=== PATIENT | female | born 1990 | race Caucasian/White ===

== ENCOUNTER 2019-02-01 10:25 | Outpatient (CLI) | payer BC ==
[~2019-02-01] VITALS: Ht 157.5 cm; Wt 65.4 kg
[2019-02-01 10:36] VITALS: Ht 157.5 cm; Wt 65.4 kg
[2019-02-01 10:38] VITALS: BP 111/64; PULSE 79; RESP 17
[2019-02-01] MEDS ORDERED: HYDROCODONE/APAP (10/325) TAB PO ONE (11:00)
--- NOTE | 2019-02-01 13:05 | TRIAGE ---
OB Triage Datetime Report Generated by CPN: 02/01/2019 13:05 Datetime: 02/01/2019 12:59 Pattern: Normal: <= 5 Contractions in 10 Minutes Resting Tone [place]: Relaxed Contraction Comments: no uc Heart Rate FHR Baseline Rate: 135 Monitor Mode: External US Variability: Moderate 6-25 bpm Accelerations: 15X15 Decelerations: None Category: Category I Datetime: 02/01/2019 12:25 Pattern: Normal: <= 5 Contractions in 10 Minutes Resting Tone [place]: Relaxed Contraction Comments: no uc Heart Rate FHR Baseline Rate: 135 Variability: Moderate 6-25 bpm Accelerations: 15X15 Decelerations: Variable Category: Category II Datetime: 02/01/2019 11:20 Labor Evaluation Frequency: irritability Duration (sec)2399: 20-30 Pattern: Normal: <= 5 Contractions in 10 Minutes Resting Tone [place]: Relaxed Heart Rate FHR Baseline Rate: 135 Monitor Mode: External US Variability: Moderate 6-25 bpm Accelerations: 15X15 Decelerations: None Category: Category I Datetime: 02/01/2019 10:41 Assessment Type: Triage Maternal Assessment Level of Consciousness: Fully Conscious DTR's/Clonus: DTRs 2+; No Clonus Headache: Frontal (Annotations: pain level 7/10) Blurred Vision: No Respiratory Effort: Unlabored; Regular Rhythm; Equal Expansion Breath Sounds, Left: Clear and Equal Breath Sounds, Right: Clear and Equal Nausea/Vomiting: Denies RUQ Epigastric Pain: Denies Lower Extremities Edema: None Degree: None Upper Extremities Edema: None Facial Edema: None Fall Risk Assessment History of Falling: (0) No Secondary Diagnosis: (0) No Ambulatory Aid: (0) Bedrest/Nurse Assist IV Therapy: (0) No Gait: (0) Normal/Bedrest/Immobile Mental Status: (0) Oriented to Own Ability Fall Score: 0 Fall Risk Score Definition: No Risk: No action required Datetime: 02/01/2019 10:40 Time of Arrival: 02/01/2019 10:21 EGA: 37.2 Arrived By: Ambulatory Arrived From: Home Chief Complaint: c/o headache, vag. discharge, and lower abdominal cramping for 2 weeks, also c/o d ecreased fm for 2 days Movement: Decreased Contractions: Denies/Absent Rupture of Membranes: Denies Vaginal Bleeding: None Vaginal Discharge: Denies Recent Sexual Intercouse: Denies Abdominal Trauma: Not Applicable Patient Complaints: Other Time Provider Notified: 02/01/2019 10:47 Provider Notified: Initial Plan: bpp, pih labs
--- NOTE | 2019-02-01 13:57 | PN ---
Triage Information Date/Time Reason for visit: DFM Weeks of Gestation 37 weeks and 2 days /Para -0-0-1 Diabetes: none Hypertention: none Objective Vital Signs Date Temp Pulse Resp B/P (MAP) Pulse Ox O2 O2 Flow FiO2 Time Delivery Rate 02/01/19 98.2 79 17 111/64 10:38 (80) Heart Rate: 130's Contractions: None Results/Medications Result Diagram: 02/01/19 1116 02/01/19 1116 Results 24 hrs Laboratory Tests Test 02/01/19 10:50 02/01/19 11:16 Urine Color YELLOW Urine Clarity SLIGHTLY CLOUDY A Urine pH 7.0 Urine Specific [place] 1.018 Urine Ketones NEGATIVE Urine Nitrite NEGATIVE Urine Bilirubin NEGATIVE Urine Urobilinogen NEGATIVE Urine Leukocyte Esterase NEGATIVE Urine Microscopic RBC 0 Urine Microscopic WBC 2 Urine Squamous Epithelial Cells FEW Urine Hemoglobin NEGATIVE Urine Glucose NEGATIVE Urine Total Protein NEGATIVE White Blood Count 6.7 Red Blood Count 3.89 L Hemoglobin 11.2 L Hematocrit 34.1 L Mean Corpuscular Volume 87.7 Mean Corpuscular Hemoglobin 28.8 L Mean Corpuscular Hemoglobin Concent 32.8 Red Cell Distribution Width 13.6 Platelet Count 236 Mean Platelet Volume 10.3 Immature Granulocytes % 1.500 H Neutrophils % 70.1 Lymphocytes % 18.2 Monocytes % 7.9 Eosinophils % 1.9 Basophils % 0.4 Nucleated Red Blood Cells % 0.0 Immature Granulocytes # 0.100 H Neutrophils # 4.7 Lymphocytes # 1.2 Monocytes # 0.5 Eosinophils # 0.1 Basophils # 0.0 Nucleated Red Blood Cells # 0.0 Prothrombin Time 13.6 Prothrombin Time Ratio 1.1 INR International Normalized Ratio 1.03 Activated Partial Thromboplast Time 31.4 Fibrinogen 361.0 Sodium Level 139 Potassium Level 4.0 Chloride Level 111 H Carbon Dioxide Level 19 L Anion Gap 9 Blood Urea Nitrogen 8 Creatinine 0.51 Est Glomerular Filtrat Rate mL/min > 60 Glucose Level 85 Uric Acid 3.7 Calcium Level 9.1 Total Bilirubin 0.3 Direct Bilirubin 0.00 Indirect Bilirubin 0.3 Aspartate Amino Transf (AST/SGOT) 20 Alanine Aminotransferase (ALT/SGPT) 18 Alkaline Phosphatase 110 Total Protein 6.6 Albumin 3.4 Globulin 3.20 Albumin/Globulin Ratio 1.06 Disposition: Discharge Assessment/Plan 28 years old -0-0-1 have a single intrauterine at 37 weeks and 2 days complaining of decreased movement and headache. She states good movement. She denies nausea, vomiting, shortness of breath, chest pain, headache, visual changes, vaginal bleeding or LOF. -FHR: No sign of metabolic acidosis- Category I -Contractions: None -All blood pressure during triage are within normal limits, no symptoms of preeclampsia with severe features except headache which resolved with [place] -Ultrasound performed, normal TEMO biophysical profile 8 out of 8 -Symptoms and sign of labor, preeclampsia, kick count discussed with frances ent, she voiced understanding. All of her questions answered. -Patient was discharged home in stable condition with the appropriate discharge instructions provided. I would like patient to have close follow-up with her primary physician or outpatient clinic in 1-2 days or return to triage for wors ening symptoms or any other urgent concerns. CRUZ RODRIGUEZ Feb 01, 2019 13:57
== END 2019-02-01 13:00 | disposition home or self-care (01) ==
LOC: OBT 10:25 → L-D 10:25 → OBT 13:00
PROVIDERS: ATTEND Obstetrics & Gynecology
DX: O36.8130 Decreased fetal movements, third trimester, not applicable or unspecified (principal); Z3A.37 37 weeks gestation of pregnancy
CPT/HCPCS: 76818; 80053; 81001; 84560; 85025; 85384; 85610; 85730; Z7500; Z7610; 81003; G0463

== ENCOUNTER 2019-02-05 07:36 | Outpatient (CLI) | payer BC ==
[~2019-02-05] VITALS: Ht 157.5 cm; Wt 66.7 kg
[2019-02-05 07:57] VITALS: Ht 157.5 cm; Wt 66.7 kg
[2019-02-05 07:58] VITALS: BP 103/60; PULSE 73
[2019-02-05] MEDS ORDERED: PNV11TAB PO (08:03)
--- NOTE | 2019-02-05 10:11 | PN ---
Triage Information Date/Time Reason for visit: Uterine contractions Weeks of Gestation 37+ /Para 2/1 Diabetes: none Hypertention: none Objective Vital Signs Date Temp Pulse Resp B/P (MAP) Pulse Ox O2 O2 Flow FiO2 Time Delivery Rate 02/05/19 98.0 73 103/60 07:58 (74) Heart Rate: 140's Contractions: None Results/Medications Results 24 hrs Laboratory Tests Test 02/05/19 08:20 Urine Color YELLOW Urine Clarity CLOUDY A Urine pH 5.0 Urine Specific [place] 1.016 Urine Ketones NEGATIVE Urine Nitrite NEGATIVE Urine Bilirubin NEGATIVE Urine Urobilinogen NEGATIVE Urine Leukocyte Esterase TRACE A Urine Microscopic RBC 3 Urine Microscopic WBC 7 H Urine Squamous Epithelial Cells MODERATE Urine Bacteria FEW A Urine Hemoglobin NEGATIVE Urine Glucose NEGATIVE Urine Total Protein NEGATIVE Disposition: Discharge Assessment/Plan BPP 07/27 CX clsoed If ROM plus test is negative she can be discharged and needs to follow up in 2 days for NST BPP Precautions discussed Questions answered Follow up with provider COLIN DIAZ M.D. Feb 05, 2019 10:11
--- NOTE | 2019-02-05 11:10 | TRIAGE ---
OB Triage Datetime Report Generated by CPN: 02/05/2019 11:10 Datetime: 02/05/2019 10:52 Stage of : OB Triage Datetime: 02/05/2019 10:03 Stage of : OB Triage Datetime: 02/05/2019 10:00 Labor Evaluation Frequency: 8-10 Monitor Mode: External Duration (sec)2399: 30-50 Quality: Mild Pattern: Normal: <= 5 Contractions in 10 Minutes Resting Tone [place]: Relaxed Heart Rate FHR Baseline Rate: 125 Monitor Mode: External US Variability: Moderate 6-25 bpm Accelerations: 10X10 Decelerations: None Category: Category I Pain Assessment Pain Scale: 4 Pain Presence: Intermittent Pain Type: Cramping Pain Location: Perineum Pain Goal: 3 Pain Relief Measures: Comfort Measures Datetime: 02/05/2019 08:54 Labor Evaluation Frequency: 0 Monitor Mode: External Pattern: Normal: <= 5 Contractions in 10 Minutes Resting Tone [place]: Relaxed Heart Rate FHR Baseline Rate: 125 Monitor Mode: External US Variability: Moderate 6-25 bpm Accelerations: 15X15 Decelerations: None Category: Category I Pain Assessment Pain Scale: 6 Pain Presence: Intermittent Pain Type: Cramping Pain Location: Perineum Pain Goal: 3 Pain Relief Measures: Comfort Measures Datetime: 02/05/2019 08:41 Stage of : OB Triage Datetime: 02/05/2019 08:08 Stage of : OB Triage Datetime: 02/05/2019 07:52 Stage of : OB Triage Assessment Type: Triage Time of Arrival: 02/05/2019 07:30 EGA: 37.6 Arrived By: Ambulatory Arrived From: Home Chief Complaint: F/U DFM, DENIES BLEEDING, LEAKING OR UC'S Movement: Present Contractions: Denies/Absent Rupture of Membranes: Denies Vaginal Bleeding: None Vaginal Discharge: Denies Recent Sexual Intercouse: Denies Abdominal Trauma: Not Applicable Patient Complaints: None Time Provider Notified: 02/05/2019 08:08 Provider Notified: EMILY Initial Plan: MONITOR, BPP, U/A C_S Maternal Assessment Level of Consciousness: Fully Conscious DTR's/Clonus: DTRs 2+; No Clonus Headache: Denies Blurred Vision: No Respiratory Effort: Unlabored; Regular Rhythm; Equal Expansion Breath Sounds, Left: Clear and Equal Breath Sounds, Right: Clear and Equal Nausea/Vomiting: Denies RUQ Epigastric Pain: Denies Facial Edema: None Temperature Route: Axillary Fall Risk Assessment History of Falling: (0) No Secondary Diagnosis: (0) No Ambulatory Aid: (0) Bedrest/Nurse Assist IV Therapy: (0) No Gait: (0) Normal/Bedrest/Immobile Mental Status: (0) Oriented to Own Ability Fall Score: 0 Fall Risk Score Definition: No Risk: No action required Labor Evaluation Frequency: 0 Monitor Mode: External Pattern: Normal: <= 5 Contractions in 10 Minutes Resting Tone [place]: Relaxed Heart Rate FHR Baseline Rate: 135 Monitor Mode: External US Variability: Moderate 6-25 bpm Decelerations: None Category: Category I Pain Assessment Pain Scale: 7 Pain Presence: Intermittent Pain Type: Cramping Pain Location: Perineum Pain Goal: 3 Pain Relief Measures: Comfort Measures Datetime: 02/01/2019 13:03 Time of Arrival: 02/05/2019 07:30 EGA: 37.6 Arrived By: Ambulatory Arrived From: Home Datetime: 02/01/2019 10:41 Fall Score: 0 Fall Risk Score Definition: No Risk: No action required Datetime: 02/01/2019 10:40 EGA: 37.2
== END 2019-02-05 11:00 | disposition home or self-care (01) ==
LOC: OBT 07:36 → L-D 07:37 → OBT 11:00
PROVIDERS: ATTEND Obstetrics & Gynecology
DX: O62.9 Abnormality of forces of labor, unspecified (principal); Z3A.37 37 weeks gestation of pregnancy
CPT/HCPCS: 76818; 81001; 84112; 87086; Z7500; G0463

== ENCOUNTER 2019-02-07 09:44 | Outpatient (CLI) | payer BC ==
[~2019-02-07] VITALS: Ht 157.5 cm; Wt 66.2 kg
[~2019-02-07 09:44] MED LIST: PNV11TAB PO
[2019-02-07 10:09] VITALS: BP 106/67; PULSE 87; RESP 17; Ht 157.5 cm; Wt 66.2 kg
--- NOTE | 2019-02-07 11:24 | TRIAGE ---
OB Triage Datetime Report Generated by CPN: 02/07/2019 11:24 Datetime: 02/07/2019 11:02 Labor Evaluation Frequency: occ Monitor Mode: External Duration (sec)2399: 50-60 Quality: Mild Pattern: Normal: <= 5 Contractions in 10 Minutes Resting Tone [place] [employer]: Relaxed Heart Rate FHR Baseline Rate: 125 Monitor Mode: External US Variability: Moderate 6-25 bpm Accelerations: 15X15 Decelerations: None Category: Category I Comments: reactive nst Datetime: 02/07/2019 09:50 Assessment Type: Triage Maternal Assessment Level of Consciousness: Fully Conscious DTR's/Clonus: DTRs 2+; No Clonus Headache: Denies Blurred Vision: No Respiratory Effort: Unlabored; Regular Rhythm; Equal Expansion Breath Sounds, Left: Clear and Equal Breath Sounds, Right: Clear and Equal Nausea/Vomiting: Denies RUQ Epigastric Pain: Denies Lower Extremities Edema: None Degree: None Upper Extremities Edema: None Facial Edema: None Fall Risk Assessment History of Falling: (0) No Secondary Diagnosis: (0) No Ambulatory Aid: (0) Bedrest/Nurse Assist IV Therapy: (0) No Gait: (0) Normal/Bedrest/Immobile Mental Status: (0) Oriented to Own Ability Fall Score: 0 Fall Risk Score Definition: No Risk: No action required Datetime: 02/05/2019 11:08 Time of Arrival: 02/07/2019 09:27 EGA: 38.1 Chief Complaint: follow up nst, bpp due to hx of decreased fm, karan 7.2, also c/o discharge Rupture of Membranes: Unsure Time Provider Notified: 02/07/2019 10:05 Provider Notified: Initial Plan: nst, bpp, rom plus Datetime: 02/05/2019 07:52 EGA: 37.6 Fall Score: 0 Fall Risk Score Definition: No Risk: No action required Datetime: 02/01/2019 13:03 EGA: 37.6 Datetime: 02/01/2019 10:41 Fall Score: 0 Fall Risk Score Definition: No Risk: No action required Datetime: 02/01/2019 10:40 EGA: 37.2
--- NOTE | 2019-02-07 11:35 | PN ---
Triage Information Date/Time Reason for visit: F/u on Low TEMO and Decresed movements Weeks of Gestation 38+ /Para n/a Diabetes: none Hypertention: none Objective Vital Signs Date Temp Pulse Resp B/P (MAP) Pulse Ox O2 O2 Flow FiO2 Time Delivery Rate 02/07/19 98.1 87 17 106/67 10:09 (80) Heart Rate: 140's Contractions: None Results/Medications Results 24 hrs Laboratory Tests Test 02/07/19 10:25 Membranes Rupture NEGATIVE Disposition: Discharge Assessment/Plan Precautions discussed Questions answered Follow up with provider COLIN DIAZ M.D. Feb 07, 2019 11:26
== END 2019-02-07 11:16 | disposition home or self-care (01) ==
LOC: OBT 09:44 → L-D 09:45 → OBT 11:16
PROVIDERS: ATTEND Obstetrics & Gynecology
DX: O36.8130 Decreased fetal movements, third trimester, not applicable or unspecified (principal); O41.93X0 Disorder of amniotic fluid and membranes, unspecified, third trimester, not applicable or unspecified; Z3A.38 38 weeks gestation of pregnancy
CPT/HCPCS: 76818; 84112; Z7500; G0463

== ENCOUNTER 2019-02-14 05:36 | Inpatient (IN) | payer BC ==
[2019-02-14] VITALS (9 sets, daily range): BP systolic 93–112; BP diastolic 55–70; PULSE 53–99; RESP 16–18; Ht 168.9 cm; Wt 66.8 kg
[~2019-02-14] VITALS: Ht 168.9 cm; Wt 66.8 kg
[2019-02-14] MEDS ORDERED: LACTATED RINGER'S 1,000 ML IV SCH (05:42)
[2019-02-14] MEDS ORDERED: CARBOPROST 250 MCG INJ IM PRN ×2 (06:00→14:30)
[2019-02-14] MEDS ORDERED: OXYTOCIN 30 UNITS/LR 500 ML IV PRN ×2 (06:00→14:30)
[2019-02-14] MEDS ORDERED: OXYTOCIN 30 UNITS/LR 500 ML IV SCH ×2 (06:00→14:05)
[2019-02-14] MEDS ORDERED: MISOPROSTOL 200 MCG TAB PR PRN ×2 (06:00→14:30)
[2019-02-14] MEDS ORDERED: CEFAZOLIN 2 GM/50 ML (PMX) 50 ML IVPB SCH (06:00)
[2019-02-14] MEDS ORDERED: METHYLERGONOVINE 0.2 MG INJ IM PRN ×2 (06:00→14:30)
--- NOTE | 2019-02-14 07:20 | PREAC ---
Date/Time of Note Date/Time of Note DATE: 02/14/19 TIME: : Anesthesia Eval and Record Evaluation Time Pre-Procedure Interview DATE: 02/14/19 TIME: 07:19 Age 28 Sex female NPO: 8 hrs Preoperative diagnosis repeat c section Planned procedure c section Past Medical History Past Medical History: None Surgery & Anesthesia Issues No known issue Meds Anticoagulation: No Beta Abilio within 24 hr: No Reason Beta Abilio not given: Pt. not on B-Abilio Reported Medications [id number] ( 19) 1 Each Tablet, 1 TAB PO DAILY, TAB 02/05/19 Current Medications Lactated Ringer's 1,000 ml @ 125 mls/hr Q8H IV Last administered on 02/14/19at 06:26; Admin Dose 125 MLS/HR; Start 02/14/19 at 05:42 Cefazolin Sodium/ Dextrose 50 ml @ 100 mls/hr ONCE IVPB ; Start 02/14/19 at 06:00 Oxytocin/Lactated Ringer's 500 ml @ 125 mls/hr POST IV ; Start 02/14/19 at 06:00 Oxytocin/Lactated Ringer's 500 ml @ 0 mls/hr ONCE PRN IV .VAGINAL BLEEDING; Start 02/14/19 at 06:00 Methylergonovine Maleate (Methergine) 0.2 mg ONCE PRN IM .VAGINAL BLEEDING; Start 02/14/19 at 06:00 Carboprost Tromethamine (Hemabate) 250 mcg ONCE PRN IM .VAGINAL BLEEDING; Start 02/14/19 at 06:00 Misoprostol (Cytotec) 1,000 mcg ONCE PRN CO .VAGINAL BLEEDING; Start 02/14/19 at 06:00 Meds reviewed: Yes Allergies Coded Allergies: No Known Allergy (Unverified , 02/01/19) Allergies Reviewed: Yes Labs/Studies Labs Reviewed: Reviewed by anesthesiologist Result Diagram: 02/14/19 0610 Laboratory Tests 02/14/19 06:10 test: Positive Studies: ECG (n/a), CXR (n/a) Pre-procedure Exam Last vitals Vital Signs Date Temp Pulse Resp B/P (MAP) Pulse Ox O2 O2 Flow FiO2 Time Delivery Rate 02/14/19 98.0 79 18 112/58 Room Air 05:58 (76) Airway: Adequate mouth opening Mallampati: Mallampati I Teeth: Normal Lung: Normal Heart: Normal ASA Physical Status ASA physical status: 2 Emergency: None Planned Anesthetic Neuraxial: Spinal Planned Pain Management Sub-arachniod narcotics Pre-operative Attestations Prior to commencing anesthesia and surgery, the patient was re-evaluated, there was verification of: *The patient's identity *The results of appropriate recent lab work and preoperative vital signs *The above evaluation not changing prior to induction *Anesthetic plan, risk benefits, alternative and complications discussed with patient/family; questions answered; patient/family understands, accepts and wishes to proceed. CINDY FREEMAN MD Feb 14, 2019 07:20
[2019-02-14] MEDS ORDERED: CITRIC ACID/NA CITRATE 30 ML CUP ONE (07:27)
[2019-02-14] MEDS ORDERED: CITRIC ACID/NA CITRATE 30 ML CUP PO ONE (07:30)
[2019-02-14] MEDS ORDERED: METOCLOPRAMIDE 10 MG INJ ONE (08:26)
[2019-02-14] MEDS ORDERED: morphine SULFATE/PF (10 MG/10 ML) INJ ONE (08:26)
[2019-02-14] MEDS ORDERED: ONDANSETRON 4 MG INJ ONE (08:26)
[2019-02-14] MEDS ORDERED: KETOROLAC 30 MG INJ ONE (08:27)
--- NOTE | 2019-02-14 08:36 | HP ---
Date/Time of Note Date/Time of Note DATE: 02/14/19 TIME: 08:34 OB - History Hx of Present Free Text/Dictation 28 years old 2 para 1-0-0-1 with single intrauterine at 39 weeks and 1 day with previous delivery desires repeat delivery. She declined ToLAC. She states good movement. She denies nausea, vomiting, shortness of breath, chest pain, headache, visual changes, vaginal bleeding or LOF. Chief Complaint: Scheduled for repeat delivery Estimated Due Date: February 20, 2019 : 2 Para: 1 Spontaneous : 0 Therapeutic : 0 Care: Limited Care Ultrasounds: Normal mid trimester US Obstetrical Complications: None Medical Complications: None Past Family/Social History * Past Medical, Surgical, Family and Obstetric Histories reviewed from chart. Blood Type: O+ Rubella: immune RPR/VDRL: Negative GBS Status: Negative HBsAG: Negative OB Admission Exam Vital Signs Vital Signs Vital Signs Date Temp Pulse Resp B/P (MAP) Pulse Ox O2 O2 Flow FiO2 Time Delivery Rate 02/14/19 98.0 79 18 112/58 Room Air 05:58 (76) Physical Exam HEENT: WNL Heart: Rhythm Normal Abdomen: WNL Extremities: Normal Membranes: Intact Heart Rate: 140's Accelerations: Accelerations Present Decelerations: No Decelerations Varibility: Moderate Contractions on Admission: None Last 72 hours Lab Results CBC & BMP 02/14/19 06:10 OB Assessment/Plan Other plan: 28 years old 2 para 0-1-0-0 1 with previous delivery at 39 weeks and 1 day desires repeat delivery - FHR: No sign of metabolic acidosis- Category I - Continuous EFM, toco - CBC, blood type and screen - Please see the orders - O+/Rubella: Immune - GBS: Negative The risk of delivery including but not limited to bleeding, infection, injury to other organs (bowel, bladder, ureter, vessels, nerves), injury to fetus, blood transfusion, blood transfusion related infection, risk of anesthesia, adhesion, needs for future , removal of uterus or any other indicated surgery was discussed with the patient and her family. She expressed understanding. All of her questions were answered. She signed the informed consent. PHYSICIAN'S VERIFICATION OF INFORMED CONSENT The patient was counseled regarding the procedure, its indications, risks, potential complications and alternatives and any questions were answered. Consent was obtained. PLANNED PROCEDURE/TREATMENT: delivery with possible using vac uum/forceps and any other indicated surgery PHYSICIAN'S VERIFICATION OF INFORMED CONSENT FOR BLOOD TRANSFUSION: There is a reasonable possibility that blood transfusion will be necessary as a result of the patient's procedure. I have discussed the following with the patient/patient's legal direct customer service representative: An explanation of the benefits and risks of the transfusion of blood or blood products and the possible alternatives. All questions have been answered to the patient's satisfaction. INFORMED CONSENT:The patient has been informed of: The nature of the proposed care, treatment, services, medications, interventions or procedures. Potential benefits, risks or side effects, including potential problems related to recuperation. The likelihood of achieving care treatment and service goals. Reasonable alternatives to the proposed care, treatment and service. The relevant risks, benefits and side effects related to alternatives, including the possible results of not receiving care, treatment and services. When indicated, any limitations on the confidentiality of information learned from or about the patient. If appropriate, the risks, benefits and alternatives of the drugs to be used for sedation/analgesia including moderate sedation. If appropriate, patient has been provided information on the risks, benefits and alternatives to the transfusion of blood and/or blood products. If appropriate, patient has been provided information regarding the Danilo Karolyn Blood Act. CRUZ RODRIGUEZ Feb 14, 2019 08:36
[2019-02-14] MEDS ORDERED: PHENYLephrine (100 MCG/ML) 10ML SYG ONE (08:39)
[2019-02-14] MEDS ORDERED: OXYTOCIN 30 UNITS/LR 500 ML IV ONE (09:15)
--- NOTE | 2019-02-14 10:08 | OPR ---
Operative Report Planned Procedure Procedure date Feb 14, 2019 Procedure(s) Repeat low transverse delivery Performed by see signature line Funeral Director/Embalmer: COLIN DIAZ M.D. Anesthesiologist: CINDY FREEMAN MD Pre-procedure diagnosis 28 years old 2 para 1-0-0-1 with single intrauterine at 39 weeks and 1 day with previous delivery desires a repeat delivery. She declined TOLAC [id number] Anesthesia Type: [id number] spinal Post-Procedure Post-procedure diagnosis 28 years old 2 para 1-0-0-1 with single intrauterine at 39 weeks and 1 day with previous delivery desires a repeat delivery Findings 1. Normal uterus, fallopian tubes and ovaries 2. Viable female in cephalic presentation. 9 at one minute and 9 in 5 minutes. Weight: 6 pound 9 ounces. Time of delivery: 09:00 3. Placenta with three vessel cord 4. Amniotic fluid - Clear Estimated Blood Loss: 600 - 700 mls Specimen(s) none Grafts/Implant(s) none Complication(s) none Pt Condition post procedure: stable Disposition: PACU Procedure Description INDICATION AND HISTORY: A 28 years old 2 para 1-0-0-1 with single intrauterine at 39 weeks and 1 day with previous delivery desires a repeat delivery. The risk of delivery including but not limited to bleeding, infection, injury to other organs (bowel, bladder, ureter, vessels, nerves), injury to fetus, blood transfusion, blood transfusion related infection, risk of anesthesia, adhesion, needs for future , removal of uterus or any other indicated surgery was discussed with the patient and her family. She expressed understanding. All of her questions were answered. She signed the informed consent. DESCRIPTION OF OPERATION: The patient was taken to the operating room, where she was identified and the procedure was verified. The patient received two gram of Ancef 30 minutes prior to surgery. Spinal anesthesia was placed. The patient placed in the dorsal supine position with a left tilt. The heart rate was 130 bpm. The patient was then prepped and draped in the normal sterile fashion. A Pfannenstiel skin incision was made and carried down to the fascia with knife. The fascia was incised in the midline and the fascial incision was carried laterally with Winchester scissors. The superior portion of the fascial incision was then grasped with Yajaira clamps and tented up and dissected off the underlying rectus muscle with sharp dissection. The lower portion of the fascial incision was then made in a similar fashion. The rectus muscle was and the peritoneum was entered. The peritoneal incision was then stretched and a bladder blade was inserted. Then, an incision was made in the lower uterine segment in a transverse fashion with a knife and extended bluntly. The was delivered atraumatically in cephalic presentation with the above findings. The umbilical cord was clamped and cut. The neonatology resuscitation team was present and the baby was handed to them. A cord blood sample was obtained for further evaluation. The placenta and membrane, which appeared normal were Removed. The uterus was exteriorized and cleared of all clot and debris. The uterus was then closed in a two layer fashion with 0-Monocryl. At the time of closure, hemostasis was noted. The gutters were irrigated. The peritoneum was reapproximated with 3-0 *Vicryl. The muscle was reapproximated with 3-0 Vicryl. The fascia was approximated with 0-Vicryl in a running fashion. The subcutaneous tissue was re approximated with 3-0 vicryl. The skin was closed with 4-0 Monocryl. All instruments, sponges and needle counts were correct x3. The patient tolerated the procedure well. She transferred to the recovery room in stable condition. CRUZ RODRIGUEZ Feb 14, 2019 10:08
[2019-02-14] MEDS ORDERED: morphine (1 MG/ML) 10ML SYRINGE IV PRN ×3 (11:00)
[2019-02-14] MEDS ORDERED: MEPERIDINE 25 MG INJ IV PRN (11:00)
[2019-02-14] MEDS ORDERED: ONDANSETRON 4 MG INJ IV PRN (11:00)
[2019-02-14] MEDS ORDERED: DIPHENHYDRAMINE 50 MG INJ IV PRN ×2 (11:00)
[2019-02-14] MEDS ORDERED: KETOROLAC 30 MG INJ IV PRN (11:00)
[2019-02-14] MEDS ORDERED: NALOXONE (0.4 MG/ML) INJ IV PRN (11:00)
[2019-02-14] MEDS ORDERED: morphine 2 MG INJ IV PRN ×3 (11:00)
[2019-02-14] MEDS: DEXTROSE 5%-LR 1,000 ML IV SCH ×2 (14:05→22:05)
[2019-02-14] MEDS ORDERED: MAGNESIUM HYDROXIDE 30ML CUP PO PRN (14:30)
[2019-02-14] MEDS ORDERED: METHYLERGONOVINE 0.2 MG TAB PO PRN (14:30)
[2019-02-14] MEDS: KETOROLAC 30 MG INJ IV PRN (18:40)
[2019-02-14] MEDS: SENNA/DOCUSATE NA (8.6MG/50MG) TAB PO SCH (21:42)
[2019-02-15 00:30] VITALS: BP 102/58; PULSE 60; RESP 18
[2019-02-15] MEDS: DEXTROSE 5%-LR 1,000 ML IV SCH (03:21)
[2019-02-15 03:34] VITALS: BP_SYST 90; BP_SYST 99; BP_DIAS 55; PULSE 68; RESP 18
[2019-02-15 07:45] VITALS: BP 97/69; PULSE 73; RESP 16
[2019-02-15] MEDS: LANOLIN HPA 1 PKT TOP PRN ×2 (08:08→20:41)
[2019-02-15] MEDS: SENNA/DOCUSATE NA (8.6MG/50MG) TAB PO SCH ×2 (08:08→20:41)
[2019-02-15] MEDS: KETOROLAC 30 MG INJ IV PRN (08:09)
--- NOTE | 2019-02-15 08:16 | PAC ---
Date/Time of Note Date/Time of Note DATE: 02/15/19 TIME: 08:16 Post-Anesthesia Notes Post-Anesthesia Note Last documented vital signs Vital Signs Date Temp Pulse Resp B/P (MAP) Pulse Ox O2 O2 Flow FiO2 Time Delivery Rate 02/15/19 98.4 68 18 99/55 (70) 97 Room Air 03:34 02/15/19 96 00:30 Activity: WNL Respiratory function: WNL Cardiovascular function: WNL Mental status: Baseline Pain reasonably controlled: Yes Hydration appropriate: Yes Nausea/Vomiting absent: No CINDY FREEMAN MD February 15, 2019 08:16
--- NOTE | 2019-02-15 08:18 | OPPN ---
Date/Time of Note Date/Time of Note DATE: 02/15/19 TIME: 08:16 Anesthesia Follow up Anesthesia Follow up Last documented vital signs Vital Signs Date Temp Pulse Resp B/P (MAP) Pulse Ox O2 O2 Flow FiO2 Time Delivery Rate 02/15/19 98.4 68 18 99/55 (70) Room Air 03:34 02/15/19 96 00:30 Respiratory function: WNL Cardiovascular function: WNL Comments A 28 year female POD#1 under spinal and duramorph foe post op pain. No pain, itching, N/V, headache, neural deficit. CINDY FREEMAN MD February 15, 2019 08:18
[2019-02-15] MEDS ORDERED: HYDROCODONE/APAP (5/325) TAB NGT PRN (11:00)
[2019-02-15] MEDS ORDERED: DIPHTH/TET/ACEL PERTUSS (ADULT) 0.5 ML VIAL IM* ONE (11:00)
[2019-02-15] MEDS: HYDROCODONE/APAP (5/325) TAB GTB SCH ×2 (14:08→21:48)
[2019-02-15] MEDS: IBUPROFEN 800 MG TAB PO SCH ×2 (14:09→21:48)
--- NOTE | 2019-02-15 15:18 | PN ---
Date/Time of Note Date/Time of Note DATE: 02/15/19 TIME: 15:16 OB Subjective Subjective Subjective POD#1 Patient is doing well. She denies nausea, vomiting, shortness of breath, chest pain, headache. She has been ambulating without difficulty, tolerating regular diet. Pain is well controlled on current medications OB Objective Objective Objective VS - Last 72 Hours, by Label Date Temp Pulse Resp B/P (MAP) Pulse Ox O2 O2 Flow FiO2 Time Delivery Rate 02/15/19 98.1 73 16 97/69 (78) Room Air 07:45 02/15/19 98.4 68 18 99/55 (70) Room Air 03:34 02/15/19 98.2 60 18 102/58 96 Room Air 00:30 (73) 02/14/19 98.4 66 18 110/70 98 Room Air 20:00 (83) 02/14/19 97.7 60 16 97/58 (71) 100 Room Air 16:30 02/14/19 97.7 56 16 103/60 100 Room Air 13:45 (74) 02/14/19 97.7 54 16 98/63 (75) 100 Room Air 12:35 02/14/19 53 18 94/59 (71) 100 Room Air 12:05 02/14/19 56 18 94/56 (69) Room Air 11:50 02/14/19 56 18 94/56 (69) 100 Room Air 11:35 02/14/19 97.6 59 18 93/55 (68) 100 Room Air 11:20 02/14/19 98.0 79 18 112/58 Room Air 05:58 (76) General: AAO X 3, comfortable, NAD, appropriate mood and affect. ABD: +BS. Soft, non-tender. Uterus 2 cm below umbilicus Incision: Dry dressing Flank: No CVA tenderness (B/L) LE: Mild edema. No clubbing, cyanosis, thigh or calf tenderness (B/L). Homans 'sign is negative OB Assessment/Plan Other plan: 28 years old 2 para 2-0-0-2 s/p repeat delivery POD#1 - AF, VSS - Baby is doing well, at bed side. She is bonding well - Contraception methods with R/B/A/FR discussed - Continue care - Discharge home on 02/17/2019 - Rx and instruction given - Follow up in one and 6 weeks CRUZ RODRIGUEZ February 15, 2019 15:18
[2019-02-15 16:05] VITALS: BP 97/62; PULSE 79; RESP 16
[2019-02-15 20:00] VITALS: BP 101/62; PULSE 89; RESP 17
[2019-02-16 03:44] VITALS: BP 100/55; PULSE 75; RESP 18
[2019-02-16] MEDS: IBUPROFEN 800 MG TAB PO SCH ×3 (05:33→21:52)
[2019-02-16] MEDS: HYDROCODONE/APAP (5/325) TAB GTB SCH ×3 (05:33→21:51)
[2019-02-16 08:00] VITALS: BP 104/56; PULSE 78; RESP 18
[2019-02-16] MEDS: SENNA/DOCUSATE NA (8.6MG/50MG) TAB PO SCH ×2 (09:42→21:51)
--- NOTE | 2019-02-16 12:27 | PN ---
Date/Time of Note Date/Time of Note DATE: 02/16/19 TIME: 12:26 OB Subjective Subjective Subjective POD#1 Patient is doing well. She denies nausea, vomiting, shortness of breath, chest pain, headache. She has been ambulating without difficulty, tolerating regular diet. Pain is well controlled on current medications Denies any depressive symptoms. Reports decreased vaginal bleeding. Denies any nausea vomiting or fever chills. Passed flatus. OB Objective OB Objective Objective Objective VS - Last 72 Hours, by Label Date Temp Pulse Resp B/P (MAP) Pulse Ox O2 O2 Flow FiO2 Time Delivery Rate 02/15/19 98.1 73 16 97/69 (78) Room Air 07:45 02/15/19 98.4 68 18 99/55 (70) Room Air 03:34 02/15/19 98.2 60 18 102/58 96 Room Air 00:30 (73) 02/14/19 98.4 66 18 110/70 98 Room Air 20:00 (83) 02/14/19 97.7 60 16 97/58 (71) 100 Room Air 16:30 02/14/19 97.7 56 16 103/60 100 Room Air 13:45 (74) 02/14/19 97.7 54 16 98/63 (75) 100 Room Air 12:35 02/14/19 53 18 94/59 (71) 100 Room Air 12:05 02/14/19 56 18 94/56 (69) Room Air 11:50 02/14/19 56 18 94/56 (69) 100 Room Air 11:35 02/14/19 97.6 59 18 93/55 (68) 100 Room Air 11:20 02/14/19 98.0 79 18 112/58 Room Air 05:58 (76) General: AAO X 3, comfortable, NAD, appropriate mood and affect. ABD: +BS. Soft, non-tender. Uterus 2 cm below umbilicus Incision: Dry dressing , appropriate tenderness in the incision Flank: No CVA tenderness (B/L) LE: Mild edema. No clubbing, cyanosis, thigh or calf tenderness (B/L). Homans 'sign is negative OB Assessment/Plan OB Assessment/Plan Other plan: 28 years old 2 para 2-0-0-2 s/p repeat delivery POD#2 - AF, VSS - Mild anemia, postop, asymptomatic Doing well Continue routine postop care May discharge home tomorrow CHERRI SANTAMARIA MD February 16, 2019 12:27
[2019-02-16 15:50] VITALS: BP 107/62; PULSE 72; RESP 18
[2019-02-16 21:00] VITALS: BP 112/77; PULSE 80; RESP 17
[2019-02-17 04:00] VITALS: BP 99/59; PULSE 75; RESP 18
[2019-02-17] MEDS: IBUPROFEN 800 MG TAB PO SCH ×2 (05:51→15:01)
[2019-02-17] MEDS: HYDROCODONE/APAP (5/325) TAB GTB SCH ×2 (05:51→15:01)
[2019-02-17 08:00] VITALS: BP 92/55; PULSE 77; RESP 18
[2019-02-17] MEDS ORDERED: DIPHTH/TET/ACEL PERTUSS (ADULT) 0.5 ML VIAL IM* ONE (09:00)
[2019-02-17] MEDS ORDERED: MEASLES,MUMPS,RUBELLA VACCINE INJ SC* ONE (09:00)
[2019-02-17] MEDS: SENNA/DOCUSATE NA (8.6MG/50MG) TAB PO SCH (09:36)
[2019-02-17 15:30] VITALS: BP 120/78; PULSE 91; RESP 18
--- NOTE | 2019-02-17 18:47 | DS ---
Date/Time of Note Date/Time of Note DATE: 02/17/19 TIME: 18:46 Obstetrical Discharge Record Final Diagnosis Final Diagnosis: Term delivered Section Section: Repeat Complications Augmentation: No Induction: No Rupture of Membranes: No Condition on Discharge Physical Assessment Last Vitals: VSS afebrile Voiding: Yes Bowel Movement: Yes Breast: Soft, non-tender Fundus: Firm Abdomen and Incision: soft wound dry Episiotomy: n/a Calf Tenderness: No Patient Condition: Stable CARRI ROJAS MD February 17, 2019 18:47
--- NOTE | 2019-02-17 18:48 | PD.PPDC ---
NATURAL GAS INSPECTOR Discharge Instruction Diagnosis [id number] Final Diagnosis: Gmksf7z s/p repeat c/s Condition [id number] Patient Condition: Dfnnh9j Stable Diet [id number] Diet: Jaoux6c Resume Regular Diet Activity/Restrictions [id number] Activity: Uqhfd4l May Shower Imwrq0Gp Restrictions: Dtkvy8h No Lifting No Sexual Activity Nothing in the Vagina No [place] No Tampons, douche Wound/Drain Care Instructions [id number] Wound/Drain Care Instructions: Hlvzr1o Wash with soap and water Keep clean and dry Follow-up Follow-up with Physician: 2, Week/Weeks Return to clinic for Vugrj3Gs MEDICAL VAN DRIVER Instructions: Tynwy3w Fever greater than 101 Chills Worsening abdominal pain Excessive Vaginal Bleeding More than 2 pads per hour Unable to tolerate diet [id number] OB Instructions: Voqce5q Breast Tenderness Depression Blurried Vision Headache [id number] Surgical Instructions: Xwils5w Incisional Drainage Incisional Redness CARRI ROJAS MD February 17, 2019 18:48
--- NOTE | 2019-02-18 17:13 | DELSUM ---
Delivery Summary A-C Datetime Report Generated by CPN: 02/18/2019 17:13 DELIVERY PERSONNEL Loan Operations Manager: Sirena, Lise MATERNAL INFORMATION Delivery Anesthesia: Spinal Medications in Delivery: SEE ANESTHESIA FLOWSHEET Delivery QBL (ml): 500 Placenta Cultured: No Maternal Complications: None LABOR SUMMARY EDC: 02/20/2019 00:00 No. Babies in Womb: 1 Attempted: No Labor Anesthesia: spinal LABOR INFORMATION Reason for Induction: Not Applicable Oxytocin: N/A Group B Beta Strep: Negative Antibiotics # of Doses: 1 Antibiotics Time of Last Dose: 02/07/2019 08:35 Steroids Given: None Reason Steroids Not Administered: Not Applicable MEMBRANES Membranes Rupture Method: Artificial Amniotic Fluid Color: Clear Amniotic Fluid Amount: Moderate Amniotic Fluid Odor: None STAGES OF LABOR Stage 3 hr: 0 Stage 3 min: 1 CSECTION DELIVERY Primary Indication: Repeat Elective CSection Urgency: Elective CSection Incidence: Repeat Labor: No Labor Elective: Elective CSection Incision: Lower Uterine Transverse BABY A INFORMATION Delivery Date/Time: 02/14/2019 09:00 Method of Delivery: Born in Route : No : N/A Forceps: N/A Vacuum Extraction: Successful Shoulder Dystocia : N/A ASSISTED DELIVERY BABY A Vacuum Number of Pulls: 1 Vacuum Number of PopOffs: 0 Vacuum Real Estate Closing Coordinator: KIWI Total Time Vacuum Applied: 20 SEC SHOULDER DYSTOCIA BABY A Delivery Date/Time: 02/14/2019 09:00 PRESENTATION/POSITION BABY A Presentation: Cephalic Cephalic Presentation: Vertex Vertex Position: Left Occipital Anterior Breech Presentation: N/A PLACENTA INFORMATION BABY A Placenta Delivery Time : 02/14/2019 09:01 Placenta Method of Delivery: Manual Removal Placenta Status: Delivered SCORES BABY A Heart Rate 1 min: >100 bpm Resp Effort 1 min: Good Cry Reflex Irritability 1 min: Cough/Sneeze/Pulls Away Muscle Tone 1 min: Active Motion Color 1 min: Body [place], Extremit Blue Resuscitation Effort 1 min: N/A SCORE 1 MIN: 9 Heart Rate 5 min: >100 bpm Resp Effort 5 min: Good Cry Reflex Irritability 5 min: Cough/Sneeze/Pulls Away Muscle Tone 5 min: Active Motion Color 5 min: Body [place], Extremit Blue Resuscitation Effort 5 min: N/A SCORE 5 MIN: 9 INFORMATION BABY A Gestational Age at Delivery: 39.1 Gestational Status: Full Term- 39- 40.6 Weeks Infant Outcome : Liveborn Infant Condition : Stable Infant Sex: Female IDENTIFICATION/MEDS BABY A ID Band Number: [id number] ID Band Location: Right Leg; Left Arm Sensor Applied: Yes Sensor Number: [id number] Sensor Location : Cord Clamp Vitamin K Given : Not Given Erythromycin Given: Not Given WEIGHT/LENGTH BABY A Infant Birthweight (gm): 2965 Weight (lb): 6 Weight (oz): 9 Length (in): 18.50 Infant Length (cm): 46.99 CORD INFORMATION BABY A No. Cord Vessels: 3 Nuchal Cord : N/A Cord Blood Taken: Yes Suction: Mouth; Nose ASSESSMENT BABY A Infant Complications: None Physical Findings at Delivery: Within Normal Limits Care By: Elizabeth WESTFALL Transferred To: Remains with Mother
== END 2019-02-17 17:05 | disposition home or self-care (01) | DRG 788 ==
LOC: L-D 05:36 → PP1 12:40
PROVIDERS: ADMIT Obstetrics & Gynecology; ATTEND Obstetrics & Gynecology
PROC: 10D00Z1 Extraction of Products of Conception, Low, Open Approach (ICD-10-PCS; principal; 2019-02-14 07:30)
DX: O34.211 Maternal care for low transverse scar from previous cesarean delivery (principal); G89.18 Other acute postprocedural pain; O90.81 Anemia of the puerperium; D64.9 Anemia, unspecified; Z3A.39 39 weeks gestation of pregnancy; Z37.0 Single live birth
CPT/HCPCS: 85025; 85610; 85730; 86592; 86850; 86900; 86901; 87340; 99464; J0690; J1885; J2270; J2274; J2370; J2405; J2590; J2765; J7120; J7121